=== PATIENT | female | born 1995 | race Caucasian/White ===

== ENCOUNTER 2016-09-26 20:19 | Emergency (ER) | payer MEDICAID ==
[~2016-09-26] VITALS: Ht 157.5 cm; Wt 49.0 kg
[~2016-09-26 20:19] MED LIST: NKM
[2016-09-26 20:40] VITALS: BP 109/73
[2016-09-26] MEDS ORDERED: KEFLEX500 MG ORAL (21:02)
[2016-09-26] MEDS ORDERED: DIPHENHYDRAMINE25 M1 ORAL (21:02)
[2016-09-26] MEDS ORDERED: PREDNISONE20 MG ORAL (21:02)
[2016-09-26 21:19] VITALS: BP 110/75
--- NOTE | 2016-09-27 18:04 | Emergency Room Report ---
History of Present Illness General Chief Complaint: Skin Rash/Abscess Source: Patient Present Illness HPI 20-year-old female presents to ED complaining of rash x4 days. Notes it itchy rash to her hands and arms. States that started after she slept at a hotel last week. Patient denies any pain. Denies any fevers or chills. Denies any known food or drug allergies. Denies any new soaps or clothing or detergents. No other aggravating relieving factors. Denies any other associated symptoms Allergies: Coded Allergies: No Known Allergies (Unverified , 03/22/12) Patient History Past Medical History: none Past Surgical History: none Pertinent Family History: none Social History: Denies: alcohol use, drug use, smoking Last Menstrual Period: August Now: No Immunizations: UTD Reviewed Nursing Documentation: PMH: Agreed, PSxH: Agreed Nursing Documentation-PMH Past Medical History: No Stated History Review of Systems All Other Systems: negative except mentioned in HPI Physical Exam Vital Signs Date Time Temp Pulse Resp B/P Pulse Ox O2 Delivery O2 Flow Rate FiO2 09/26/16 20:35 97.7 77 16 109/73 97 Room Air Sp02 EP Interpretation: reviewed, normal General Appearance: no apparent distress, alert, GCS 15, non-toxic Head: normocephalic Eyes: bilateral eye PERRL, bilateral eye normal inspection ENT: normal ENT inspection Neck: normal inspection Respiratory: normal inspection Cardiovascular #1: normal inspection Gastrointestinal: normal inspection Rectal: deferred Genitourinary: no CVA tenderness Musculoskeletal: normal inspection Neurologic: alert, oriented x3, responsive, motor strength/tone normal, sensory intact, speech normal Psychiatric: judgement/insight normal, memory normal, mood/affect normal, no suicidal/homicidal ideation Skin: rash - small papular lesions noted to hands, arms. nonerythematous base. Lymphatic: normal inspection Medical Decision Making Diagnostic Impression: Primary Impression: Insect bite Qualified Codes: W57.XXXA - Bitten or stung by nonvenomous insect and other nonvenomous arthropods, initial encounter ER Course Hospital Course 20-year-old female presents to ED with rash to hands, arms Differential diagnoses include: Cellulitis, dermatitis, insect bite, abscess Clinical course Patient placed on stretcher. After initial history, physical exam reveals a young female in no acute distress. On exam there are multiple papular lesions noted to the hands and arms. consistent with insect bite, given history of hotel stay Diagnosis - insect bite stable and discharged to home with prescription for Keflex, Benedryl, Prednisone. Instructed to followup with PMD. Instructed return to ED if symptoms recur or worsen Last Vital Signs Date Time Temp Pulse Resp B/P Pulse Ox O2 Delivery O2 Flow Rate FiO2 09/26/16 21:19 97.7 77 16 110/75 97 Room Air Status: improved Disposition: HOME, SELF-CARE Condition: Stable Scripts Cephalexin* (KEFLEX*) 500 Mg Capsule 500 MG ORAL Q6H, #28 CAP 0 Refills Prov: PHILLY MCCULLOUGH M.D. 09/26/16 Diphenhydramine Hcl* (DIPHENHYDRAMINE HCL*) 25 Mg Capsule 25 MG ORAL Q6H Y for Itching for 5 Days, #30 CAP 0 Refills Prov: PHILLY MCCULLOUGH M.D. 09/26/16 Prednisone* (PREDNISONE*) 20 Mg Tablet 40 MG ORAL DAILY, #10 TAB Prov: PHILLY MCCULLOUGH M.D. 09/26/16 Referrals: [facility],REFERRING (PCP) Patient Instructions: Insect Bite, [id number] PHILLY MCCULLOUGH M.D. September 27, 2016 18:04
== END 2016-09-26 21:19 | disposition home or self-care (01) ==
LOC: EMR 21:00
DX: S60.562A Insect bite (nonvenomous) of left hand, initial encounter (principal); S60.561A Insect bite (nonvenomous) of right hand, initial encounter; S40.862A Insect bite (nonvenomous) of left upper arm, initial encounter; S40.861A Insect bite (nonvenomous) of right upper arm, initial encounter; W57.XXXA Bitten or stung by nonvenomous insect and other nonvenomous arthropods, initial encounter; Y93.9 Activity, unspecified; Y92.59 Other trade areas as the place of occurrence of the external cause
CPT/HCPCS: 99284

== ENCOUNTER 2018-09-12 20:36 | Emergency (ER) | payer MEDICAID ==
[~2018-09-12] VITALS: Ht 157.5 cm; Wt 47.2 kg
[~2018-09-12 20:36] MED LIST changes: +DIPHENHYDRAMINE25 M1 ORAL; +KEFLEX500 MG ORAL; +PREDNISONE20 MG ORAL
[2018-09-12 20:53] VITALS: BP 112/67
[2018-09-12] MEDS ORDERED: Acetaminophen 500mg (ES) tab ORAL ONE (21:15)
[2018-09-12] MEDS ORDERED: Methocarbamol 750mg tab ORAL ONE (21:15)
[2018-09-12] MEDS ORDERED: TYLENOL EXTRA500 MG ORAL (21:38)
[2018-09-12] MEDS ORDERED: LIDODERM700 M1 TOPIC (21:38)
[2018-09-12] MEDS ORDERED: ROBAXIN-750750 MG PO (21:38)
[2018-09-12 21:48] VITALS: BP 112/67
--- NOTE | 2018-09-13 01:15 | Emergency Room Report ---
History of Present Illness General Chief Complaint: Neck Pain Source: Patient Present Illness HPI 22-year-old female presents ED for evaluation. Complaining of neck pain for the last 3 days. States she woke up with the pain. States her neck feels very stiff. dull, 8 out of 10, nonradiating. Denies photophobia or blurry vision. Denies fevers or chills. Denies any fall or injury. No other aggravating relieving factors. Denies any other associated symptoms Allergies: Coded Allergies: No Known Allergies (Unverified , 03/22/12) Patient History Past Medical History: none Past Surgical History: none Pertinent Family History: none Social History: Denies: smoking, alcohol use, drug use Last Menstrual Period: 09/04/2018 Now: No Immunizations: UTD Reviewed Nursing Documentation: PMH: Agreed; PSxH: Agreed Nursing Documentation-PMH Past Medical History: No Stated History Review of Systems All Other Systems: negative except mentioned in HPI Physical Exam Vital Signs Date Time Temp Pulse Resp B/P (MAP) Pulse Ox O2 Delivery O2 Flow Rate FiO2 09/12/18 20:45 98.1 69 16 98 Room Air 09/12/18 20:53 112/67 Sp02 EP Interpretation: reviewed, normal General Appearance: no apparent distress, alert, GCS 15, non-toxic Head: normocephalic Eyes: bilateral eye normal inspection, bilateral eye PERRL, bilateral eye EOMI ENT: hearing grossly normal, normal pharynx, no angioedema, normal voice, TMs + canals normal Neck: full range of motion, no meningismus, no bony tend, supple/symm/no masses Respiratory: normal inspection Cardiovascular #1: normal inspection Gastrointestinal: normal inspection Rectal: deferred Genitourinary: no CVA tenderness Musculoskeletal: normal inspection Neurologic: alert, oriented x3, responsive, trench shovel operator III-XII nml as tested, motor strength/tone normal, sensory intact, speech normal Psychiatric: normal inspection Skin: normal inspection Lymphatic: normal inspection Medical Decision Making Diagnostic Impression: Primary Impression: Neck pain ER Course Hospital Course 22-year-old female presents ED complaining of R-sided neck pain Differential diagnoses include: neck strain, shoulder strain, dislocation/ fracture Clinical course Patient placed on stretcher. After initial history and physical exam reveals female in no acute distress. On exam there is no midline neck tenderness or shoulder tenderness. There is paraspinal cervical tenderness. No focal neurological deficits. Discussed findings with patient. No meningismal signs. No injury. likely cervical strain. Given Tylenol, Robaxin, Lidoderm here On reassessment symptoms improved. Safe for discharge close outpatient follow- up. States she has PMD Diagnosis - neck strain Stable and discharged to home with prescription for tylenol, robaxin, lidoderm. Followup with PMD. Return to ED if symptoms recur or worsen Last Vital Signs Date Time Temp Pulse Resp B/P (MAP) Pulse Ox O2 Delivery O2 Flow Rate FiO2 09/12/18 21:48 98.1 79 16 112/67 98 Room Air Status: improved Disposition: HOME, SELF-CARE Condition: Stable Scripts Lidocaine (Lidoderm) 1 Each Adh..patch 1 PATCH TOPIC DAILY, #7 PATCH 0 Refills Patch(es) may remain in place for up to 12 hours in any 24-hour period. Prov: Juan C Browne MD 09/12/18 Methocarbamol* (ROBAXIN-750*) 750 Mg Tablet 750 MG PO TID, #21 TAB 0 Refills Prov: Juan C Browne MD 09/12/18 Acetaminophen* (TYLENOL EXTRA STRENGTH*) 500 Mg Tablet 500 MG ORAL Q8H PRN for Prn Headache/Temp > 101, #30 TAB 0 Refills Prov: Juan C Browne MD 09/12/18 Referrals: NON PHYSICIAN (PCP) Patient Instructions: Cervical Sprain, [id number] Juan C Browne MD September 13, 2018 01:15
== END 2018-09-12 21:45 | disposition home or self-care (01) ==
LOC: EMR 21:25
DX: M54.2 Cervicalgia (principal)
CPT/HCPCS: 99283